=== PATIENT | male | born 1985 | race Two or more races ===

== ENCOUNTER 2024-09-17 03:04 | Emergency (ER) | payer MEDICAID, OTHER ==
[~2024-09-17] VITALS: Ht 180.3 cm; Wt 113.6 kg
[2024-09-17] MEDS: TETANUS-DIPTH-ACEL PERTUSSIS 0.5ML SYR Tdap IM ONE (03:34)
[2024-09-17] MEDS: ACETAMINOPHEN 325 MG TAB PO ONE (03:35)
[2024-09-17 05:11] VITALS: PULSE 88; RESP 21; O2SAT 96
[2024-09-17] MEDS: MORPHINE SULFATE 4 MG/ML SYR/VIAL IV ONE (05:12)
[2024-09-17] MEDS: SODIUM CHLORIDE 0.9% 1,000 ML IV ONE (05:12)
[2024-09-17] MEDS: ONDANSETRON HCL 4 MG/2 ML VIAL IV ONE (05:12)
[2024-09-17] MEDS: ceFAZolin 2 GM/D5W50ml 50 ML IV ONE (05:15)
[2024-09-17 05:34] LABS: Basophils # (auto) 0 10 ^3/uL (0-0.2); Basophils % (auto) 0.1 % (0.0-2.0); Eosinophils # (auto) 0 10 ^3/uL (0-0.8); Eosinophils % (auto) 0.1 % (0.0-7.0); Hematocrit 43.8 % (41.0-53.0); Hemoglobin 14.8 g/dL (13.5-17.5); Lymphocytes # (auto) 0.4 10 ^3/uL (0.4-5.4); Lymphocytes % (auto) 2.8 % (10.0-50.0); Mean Corpuscular Hemoglobin 32.2 pg (28.0-32.0); Mean Corpuscular Hgb Conc. 33.9 g/dL (32.0-36.0); Monocytes # (auto) 0.7 10 ^3/uL (0-1.3); Monocytes % (auto) 4.7 % (0.0-12.0); Neutrophils # (auto) 13.5 10 ^3/uL (1.6-8.6); Neutrophils % (auto) 92.3 % (37.0-80.0); Platelet Count (auto) 239 10^3/uL (140-450); Red Blood Cells 4.61 10^6/uL (4.5-5.90); Red Cell Distribution Width 13.1 % (11.8-14.3); White Blood Cell 14.7 10^3/uL (4.4-10.8)
[2024-09-17 05:41] LABS: Chloride 106 mmol/L (98-107); Potassium 3.9 mmol/L (3.5-5.1); Sodium 138 mmol/L (136-145)
[2024-09-17 05:42] LABS: Anion Gap 6 (5-15); Carbon Dioxide 26 mmol/L (20-31)
[2024-09-17 05:43] LABS: Calcium 9.4 mg/dL (8.7-10.4)
[2024-09-17 05:47] LABS: BUN/Creatinine Ratio 18.6 (10.0-20.0); Blood Urea Nitrogen 16 mg/dL (9-23); Glucose 123 mg/dL (74-106)
[2024-09-17 07:30] VITALS: PULSE 82; RESP 19; O2SAT 96
[2024-09-17 08:02] VITALS: BP 121/90; PULSE 89; RESP 17; TEMP 97.5; O2SAT 97
== END 2024-09-17 08:42 | disposition short-term general hospital (02) ==
LOC: ER 03:04
DX: S09.93XA Unspecified injury of face, initial encounter (principal); R68.84 Jaw pain; Y04.8XXA Assault by other bodily force, initial encounter; Y93.89 Activity, other specified; Y92.89 Other specified places as the place of occurrence of the external cause; Y99.8 Other external cause status
CPT/HCPCS: 36415; 70450; 70486; 80048; 85025; 90471; 90715; 96365; 96375; 99285; J0690; J2270; J2405